=== PATIENT | male | born 1945 | race Caucasian/White ===

== ENCOUNTER → 2016-09-17 | Outpatient (CLI) | payer OTHER ==
[2015-10-16 17:30] VITALS: BP 115/60
--- NOTE | 2016-09-17 14:24 | CT ---
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 Additional axial images were obtained prone. Comparison: None Findings coal a there is a calcified granuloma in the left upper lobe anteriorly. There are few bleb s in the left lung. There is no significant pleural fluid. There is mild cardiomegaly. There is no p ericardial effusion. There is heavy Coronary artery calcification. There are cardiac pacemaker wires in place. The visualized upper abdomen is unremarkable. No pleural mass or calcification is demonst rated. Impression: 1. Old healed granulomatous disease and mild cardiomegaly. No evidence for pleural effusion. Reported By:
== END | disposition home or self-care (01) ==
LOC: RAD 09:57
PROVIDERS: ATTEND Internal Medicine Sleep Medicine
DX: R06.02 Shortness of breath (principal); R06.09 Other forms of dyspnea
CPT/HCPCS: 71020; 71250

== ENCOUNTER → 2016-12-14 | Outpatient (CLI) | payer OTHER ==
[2015-10-16 17:30] VITALS: BP 115/60
--- NOTE | 2016-12-14 16:47 | CT ---
HISTORY: Chronic right shoulder pain Study: CT of the right shoulder Comparison: None Technique: Multiple axial images were obtained without administration of IV contrast. Sagittal and c oronal reformats were performed and reviewed. Dose reduction techniques including Automated Exposure Control (AEC) and adjustment of mA and kV were utilized. Findings: There are degenerative changes of the glenohumeral and acromioclavicular joints. There is no AC joint separation. The humeral head is high-riding, closely apposed to the acromion suggesting chronic rota tor cuff pathology. There is also some atrophy of the associated muscles. There is a joint effusion p resent with punctate calcific debris seen suggesting loose bodies. There are subchondral cystic emerson es of the glenoid and humeral head with large marginal osteophytes. Glenohumeral alignment appears no rmal. There are degenerative changes of the visualized thoracic spine. The visualized right lung is c lear. There are partially visualized transvenous pacemaker leads. IMPRESSION: 1. Advanced degenerative changes of the right shoulder as described and findings suggesting chronic r otator cuff pathology with associated muscle atrophy. There is a moderate-sized effusion containing c alcified debris. Reported By:
== END | disposition home or self-care (01) | DRG 558 ==
LOC: RAD 12:55
PROVIDERS: ATTEND Internal Medicine
DX: M75.121 Complete rotator cuff tear or rupture of right shoulder, not specified as traumatic (principal); M25.511 Pain in right shoulder
CPT/HCPCS: 73200